=== PATIENT | female | born 1935 | race American Indian/Alaskan Native ===

== ENCOUNTER 2020-04-14 09:56 | Outpatient (CLI) | payer MEDICARE, OTHER ==
--- NOTE | 2020-04-14 17:58 | Mammography Report ---
DIGITAL DIAGNOSTIC MAMMOGRAM WITH CAD , 04/14/2020 CLINICAL INFORMATION / INDICATION: POST CLIP BIOPSY TECHNIQUE: Digital right mammographic imaging was performed. This examination was interpreted with the benefit of Computer-aided Detection analysis. COMPARISON: Outside mammogram 03/19/2020 FINDINGS: Breast Density: There are scattered areas of fibroglandular density. Right mammogram was performed following percutaneous biopsy by Dr. Cherry. There is a biopsy clip in the spiculated mass in the right breast at 12:00, middle depth. The biopsy clip appears to be in t he appropriate position. IMPRESSION: Postbiopsy mammogram shows appropriate placement of biopsy clip within the spiculated mas s at 12:00. Follow up recommendation: Awaiting pathology results. BI-RADS Category 5: Highly Suggestive of Malignancy. A "normal" or negative report should not discourage follow up or biopsy of a clinically significant f inding. A written summary of these findings will be mailed to the patient. The patient will be entered into a mammography reporting system which will generate a reminder letter for the patient's next appointmen t at the appropriate interval. According to the [employer], yearly mammograms are recommended starting at age 40 and continuing as long as a woman is in good health. Breast MRI is recommended for women with an wilmar roximately 20-25% or greater lifetime risk of breast cancer, including women with a strong family his tory of breast or ovarian cancer and women who have been treated for Hodgkin's disease. Signer Name: Penny Hylton MD Signed: 04/14/2020 5:53 PM Workstation Name: [id number] [id number]
== END 2020-04-14 09:57 | disposition home or self-care (01) ==
LOC: SPVWC 09:56
PROVIDERS: ATTEND Surgery
DX: N63.41 Unspecified lump in right breast, subareolar (principal)

== ENCOUNTER 2020-04-15 09:22 | Outpatient (CLI) | payer MEDICARE, OTHER | END 2020-04-15 09:23 | disposition home or self-care (01) | LOC: LABHHL 09:22 | PROVIDERS: ATTEND Surgery | DX: N63.12 Unspecified lump in the right breast, upper inner quadrant (principal); R92.2 Inconclusive mammogram | CPT/HCPCS: 88305; 88341; 88342; 88368 ==

== ENCOUNTER 2020-04-30 12:33 | Outpatient (CLI) | payer MEDICARE, OTHER ==
--- NOTE | 2020-04-30 14:54 | Magnetic Resonance Report ---
MRI BREAST BILATERAL WITH AND WITHOUT CONTRAST, 04/30/2020 CLINICAL INFORMATION / INDICATION: MALIGNANT NEOPLASM OF UPPER INNER QUAD OF RT BREAST. Patient prese nts for evaluation of extent of disease of recent biopsy proven right breast cancer. TECHNIQUE: Axial T1 and T2-weighted fat sat images were obtained precontrast. Gadolinium-based contra st was injected intravenously and serial axial T1 weighted images with fat saturation were obtained. 3-D MIP projections, kinetic analysis, and subtraction imaging were utilized to evaluate. A dedicated 8-channel breast coil was used for image acquisition. COMPARISON: Prior mammogram 04/14/2020 and 03/19/2020 FINDINGS: BREAST DENSITY: There are scattered areas of fibroglandular density. BACKGROUND ENHANCEMENT: Low level background enhancement within both breasts. RIGHT BREAST: Corresponding with the site of biopsy-proven malignancy in the 1:00 position of the rig ht breast, there is an irregular enhancing mass with associated biopsy clip, measuring up to 1.7 x 1. 5 x 1.8 cm. The mass is located approximately 9 cm from the nipple, 3 mm from the medial skin surface , and 8.5 cm from the chest wall. No additional suspicious areas of enhancement identified in the rig ht breast. LEFT BREAST: No dominant mass or suspicious area of enhancement in the left breast. AXILLAE: No pathologically enlarged axillary lymph nodes. ADDITIONAL FINDINGS: A right renal cyst is noted. IMPRESSION: 1. An irregular enhancing mass corresponds with the site of biopsy-proven malignancy in the right josé ast. 2. No suspicious MRI abnormality identified in the left breast. Follow up recommendation: No recall. BI-RADS Category 6: Known Biopsy-Proven Malignancy. Signer Name: Natalie Sinclair MD Signed: 04/30/2020 2:49 PM Workstation Name: [id number]
== END 2020-04-30 12:34 | disposition home or self-care (01) ==
LOC: SPVIMAG 12:33
PROVIDERS: ATTEND Surgery
DX: C50.211 Malignant neoplasm of upper-inner quadrant of right female breast (principal); N63.12 Unspecified lump in the right breast, upper inner quadrant; N28.1 Cyst of kidney, acquired
CPT/HCPCS: A9577; C8908; 77049

== ENCOUNTER 2020-06-04 05:56 | Day surgery (SDC) | payer MEDICARE, OTHER ==
[2020-05-30 10:54] LABS: Hematocrit 40.5 % (30.3-42.9); Hemoglobin 13.8 gm/dl (10.1-14.3); Mean Corpuscular HGB Conc 34 % (30-34); Mean Corpuscular Volume 89 fl (79-97); Platelet Count 223 K/mm3 (140-440); Red Blood Count 4.54 M/mm3 (3.65-5.03); Red Cell Distribution Width 14.4 % (13.2-15.2)
[2020-05-30 11:12] LABS: Blood Urea Nitrogen 13 mg/dL (7-17); Hemolysis Index 8
[2020-05-30 11:24] LABS: BUN/Creatinine Ratio 22
[~2020-06-04 05:56] MED LIST: BACITRACIN ZINC OINT 28.4 GM TP ONE; WATER FOR IRRIG STERILE 1,500 ML BOTTLE IR ONE
[2020-06-04] MEDS ORDERED: fentaNYL 100 MCG/2 ML INJ IV PRN ×2 (06:00→07:32)
[2020-06-04] MEDS ORDERED: LACTATED RINGERS 1,000 ML IV SCH (06:00)
[2020-06-04] MEDS ORDERED: ceFAZolin/Water 2 GM/20 ML 2 GM/20 ML SYRINGE IV NR (06:00)
[2020-06-04] MEDS ORDERED: ACETAMINOPHEN 500 MG TAB PO SCH (06:00)
[2020-06-04] MEDS ORDERED: SODIUM CHLORIDE P/F VIAL 10 ML 10 ML ONE (07:25)
[2020-06-04] MEDS ORDERED: METHYLENE BLUE 50 MG/10 ML AMP ONE (07:25)
[2020-06-04] MEDS ORDERED: ePHEDrine SULFATE 50 MG/1 ML INJ ONE (07:27)
--- NOTE | 2020-06-04 07:31 | Anesthesia Day of Surgery ---
Anesthesia Day of Surgery - Day of Surgery Patient Examined: Yes Patient H&P Reviewed: Yes Patient is NPO: Yes
--- NOTE | 2020-06-04 07:31 | Anesthesia Consultation ---
Anesthesia Consult and Med Hx Date of service: 06/04/20 - Airway Anesthetic Teeth Evaluation: Good ROM Head & Neck: Adequate Mental/Hyoid Distance: Adequate Mallampati Class: Class II Intubation Access Assessment: Probably Good - Pre-Operative Health Status ASA Pre-Surgery Classification: ASA2 Proposed Anesthetic Plan: General Nerve Block: PECs block - Pulmonary Hx Smoking: No Hx Respiratory Symptoms: No - Cardiovascular System Hx Hypertension: Yes (took antihypertensives last night) Hx Heart Attack/AMI: No Hx Percutaneous Transluminal Coronary Angioplasty (PTCA): No - Central Nervous System CVA: No - Gastrointestinal Hx Gastroesophageal Reflux Disease: No - Endocrine Hx Renal Disease: No Hx Liver Disease: No Hx Insulin Dependent Diabetes: No Hx Non-Insulin Dependent Diabetes: No Hx Thyroid Disease: No - Other Systems Hx Cancer: Yes (breast ca) - Additional Comments Anesthesia Medical History Comments: No hx anesthetic complications.
[2020-06-04] MEDS ORDERED: LIDOCAINE MPF (2%) 20 MG/1 ML VIAL 5 ML ONE (07:32)
[2020-06-04] MEDS ORDERED: PHENYLEPHRINE/NS 1,000 MCG/10 ML SYRINGE (OR USE) IV ONE (07:32)
[2020-06-04] MEDS ORDERED: SUCCINYLCHOLINE CHLORIDE 200 MG/10 ML INJ MDV ONE (07:32)
[2020-06-04] MEDS ORDERED: ONDANSETRON 4 MG/2 ML INJ IV PRN (07:32)
[2020-06-04] MEDS ORDERED: HYDROcodone/ACETAMINOPHEN 5-325 MG TAB PO PRN (07:32)
[2020-06-04] MEDS ORDERED: BUPIVACAINE-EPINEPHRINE/PF 0.5%-1:200,000 (30 ML) VIAL INFILTRATI ONE (07:32)
[2020-06-04] MEDS ORDERED: NEOSTIGMINE 10MG/10 ML INJ MDV ONE (07:32)
[2020-06-04] MEDS ORDERED: dexAMETHasone 20 MG/5 ML VIAL ONE (07:32)
[2020-06-04] MEDS ORDERED: GLYCOPYRROLATE 0.4 MG/2 ML INJ ONE (07:32)
[2020-06-04] MEDS ORDERED: propofoL 200 MG/20 ML VIAL IV ONE (07:32)
[2020-06-04] MEDS ORDERED: dexAMETHasone 4 MG/ML VIAL ONE (07:32)
[2020-06-04] MEDS ORDERED: ROCURONIUM 50 MG/5 ML INJ IV ONE (07:32)
[2020-06-04] MEDS ORDERED: SODIUM CHLORIDE 0.9% P/F 10 ML VIAL INFILTRATI ONE (08:19)
[2020-06-04] MEDS ORDERED: METHYLENE BLUE 50 MG/10 ML AMP IRRIGATION ONE (08:19)
[2020-06-04] MEDS ORDERED: BACITRACIN ZINC OINT 28.4 GM TP ONE ×2 (09:11→11:08)
[2020-06-04] MEDS ORDERED: WATER FOR IRRIG STERILE 1,500 ML BOTTLE IR ONE (09:21)
[2020-06-04] MEDS ORDERED: MORPHINE 2 MG/1 ML INJ ONE (11:09)
[2020-06-04] MEDS ORDERED: SUGAMMADEX SODIUM 200 MG/2 ML VIAL IV ONE (11:12)
--- NOTE | 2020-06-04 11:31 | Short Stay Summary ---
Short Stay Documentation Date of service: 06/04/20 - History H&P: obtained from office - Allergies and Medications Current Medications: Allergies No Known Allergies Allergy (Verified 06/04/20 09:46) Home Medications Medication Instructions Recorded Confirmed Last Taken Type Metoprolol [Lopressor] 25 mg PO DAILY 05/29/20 06/04/20 06/03/20 21:00 History Pitavastatin Calcium [LiVALO] 2 mg PO HS 05/29/20 06/04/20 06/03/20 21:00 History amLODIPine/VALSARTAN [Exforge 1 each PO DAILY 05/29/20 06/04/20 06/03/20 21:00 History 5-160 mg Tablet] Active Medications Acetaminophen (Acetaminophen 500 Mg Tab) 1,000 mg PO PREOP KARINA Stop: 06/04/20 23:59 Last Admin: 06/04/20 07:08 Dose: 1,000 mg Documented by: Fentanyl (Fentanyl 100 Mcg/2 Ml Inj) 100 mcg IV ONCE PRN PRN Reason: sedation for nerve block Stop: 06/04/20 23:59 Last Admin: 06/04/20 07:40 Dose: 100 mcg Documented by: Fentanyl (Fentanyl 100 Mcg/2 Ml Inj) 50 mcg IV Q5MIN PRN PRN Reason: Pain , Severe (7-10) Stop: 06/04/20 23:00 Cefazolin Sodium (Ancef/Sterile Water 2 Gm/20 Ml) 2 gm in 20 mls @ 80 mls/hr IV PREOP NR; Protocol Stop: 06/04/20 23:00 Lactated Ringer's (Lactated Ringers) 1,000 mls @ 100 mls/hr IV DIRECT KARINA Stop: 06/04/20 23:59 Last Admin: 06/04/20 07:00 Dose: 100 mls/hr Documented by: - Brief post op/procedure progress note Date of procedure: 06/04/20 Pre-op diagnosis: Right breast cancer upper inner quadrant Post-op diagnosis: same Procedure: Right partial mastectomy with SLNB Anesthesia: GETA Findings: Right breast mass and clip present; x2 SLNs Surgeon: HANS MODI Estimated blood loss: minimal Pathology: list (right partial mastectomy w SLNBx2) Specimen disposition: to lab Condition: stable - Disposition Condition at discharge: Good Disposition: DC-01 TO HOME OR SELFCARE Short Stay Discharge Plan Activity: other (no heavy lifting) Diet: regular Wound: keep clean and dry (wear breast binder; may shower in 48 hours; no baths; apply bacitractin twice daily to incision) Follow up with: HANS MODI MD [Staff Physician] - 7 Days
--- NOTE | 2020-06-04 11:47 | Operative Report ---
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 Recommendations are to proceed with breast conservation. She understands the role of adjuvant radiation therapy and Oncotype DX will be obtained by medical oncology. She wished to proceed with the above procedure. Procedure in detail: Anesthesia placed right pectoral block. Patient was then taken to the operating room. Gen. anesthesia was administered. The right nipple was injected with radioisotope and 1 cc of methylene blue dye. Right breast and axilla were prepped and draped in the normal sterile operative fashion. Timeout was performed. Gamma probe was inserted into the axilla. The area of hot spot was identified. A right axillary incision was made with a 15 blade knife with dissection taken down to the subcutaneous tissues. The axillary fascia was opened with the Bovie cautery. 2 SLNs were identified and dissected free. All remaining counts were less than 10% of the highest count. Lymph nodes were sent to pathology for permanent processing. Hemostasis was obtained in the right axillary cavity. Axillary cavity was appropriately irrigated and suctioned. Hemostasis was noted. Axillary fascia was approximated and closed using interrupted 3-0 Vicryl and the skin brought together and closed using a running 4-0 Monocryl followed by skin affix. Attention was then taken towards the right breast. Ultrasound was used to dayne the area of incision; known breast malignancy at 12:30/1:00 position 8 cm FN of 10 mm. An upper inner quadrant breast incision around 1:00 position encompassing skin given mass close proxmity to skin; was made with a 15 blade knife and dissection taken down to subcutaneous tissues. First began raising of the superior flap with dissection taken superiorly past the area of known malignancy and then taken down to the pectoralis muscle, followed by raising of the inferior flap, medial flap and lateral flap with all flaps taken past the area of known malignancy and then posteriorly down to the pectoralis muscle. The breast area of concern was appropriately removed posteriorly from the pectoralis muscle with the aid of the Bovie cautery. Specimen was marked and then sent to pathology and radiology; radiograph specimen with mass and clip present. Breast cavity was irrigated and hemostasis was obtained. Ultrasound used as well to evaluate margins that appeared cleared. Then proceeded with complex closure. The posterior deep breast tissues were then mobilized to approximate and cover pectoralis muscle; close using interrupted 3-0 Vicryl. Deep breast tissues were then approximated and close using interrupted 3-0 Vicryl. The subcutaneous tissues were then approximated and closed using interrupted 3-0 Vicryl followed by closing of the skin with a running 4-0 Monocryl and skin affix. The patient tolerated surgery very well and she was awaken from anesthesia without any complication and transported to PACU in good condition.
--- NOTE | 2020-06-04 13:11 | Mammography Report ---
BREAST SPECIMEN RADIOGRAPH HISTORY: Right breast lumpectomy FINDINGS/IMPRESSION: The submitted radiograph or radiographs demonstrate(s) the presence of a spiculated mass containing b iopsy clip. There is no wire present. Signer Name: Penny Hylton MD Signed: 06/04/2020 1:07 PM Workstation Name: [id number]
--- NOTE | 2020-06-04 13:18 | Post Anesthesia Evaluation ---
- Post Anesthesia Evaluation Patient Participated: Yes Airway Patent: Yes Stable Respiratory Function: Yes Nausea/Vomiting: No Temp > 96.8F: Yes Pain Manageable: Yes Adequeate Hydration: Yes Anesthesia Complications: No
[2020-06-04 13:29] VITALS: BP 125/93
== END 2020-06-04 05:57 | disposition home or self-care (01) ==
LOC: OR 05:56
PROVIDERS: ATTEND Surgery
DX: C50.211 Malignant neoplasm of upper-inner quadrant of right female breast (principal); I89.8 Other specified noninfective disorders of lymphatic vessels and lymph nodes; I10 Essential (primary) hypertension; M19.90 Unspecified osteoarthritis, unspecified site; Z79.899 Other long term (current) drug therapy; Z20.822 Contact with and (suspected) exposure to COVID-19; Z98.41 Cataract extraction status, right eye; Z98.42 Cataract extraction status, left eye; Z98.890 Other specified postprocedural states
CPT/HCPCS: 19307; 36415; 38792; 76098; 78800; 80048; 85027; 88307; 88333; A9541; J0330; J0690; J1100; J2270; J2370; J2405; J2704; J2710; J3010; J7120; Q9968; U0003; 88342